=== PATIENT | female | born 1945 | race Caucasian/White ===

== ENCOUNTER 2017-02-25 09:03 | Day surgery (SDC) | payer MEDICARE, BC ==
--- NOTE | ~2017-02-25 | EGD ---
EGD REPORT [facility] [address] [id number] NAME: ROSA HACKETT : [birth year] STATUS : [facility] PAT#: [id number] AGE: 71 ADM/REG DATE : 02/25/17 MR#: [id number] REPORT SERV DATE: 02/25/17 DICTATED BY: SENIA CRUZ DATE: 02/25/17 REPORT STATUS : Draft TRANSCRIBED BY: [employer] DATE: 02/25/17 [facility] Patient Name: Rosa Hackett Date of : 1945 Attending MD: SENIA CRUZ MD Procedure Date No Time: 02/25/2017 Procedure: Colonoscopy Indications: High risk colon cancer surveillance: Personal history of colonic polyps Referring MD: SENIA JI Medicines: as per anesthesia Complications: No immediate complications. Procedure: Pre-Anesthesia Assessment: - ASA Grade Assessment: III - A patient with severe systemic disease. After I obtained informed consent, the scope was passed under direct vision. Throughout the procedure, the patient's blood pressure, pulse, and oxygen saturations were monitored continuously. The PCF [id number] was introduced through the anus and advanced to the cecum, identified by appendiceal orifice and ileocecal valve. The colonoscopy was performed without difficulty. The patient tolerated the procedure. The quality of the bowel preparation was adequate to identify polyps. Findings: The perianal and digital rectal examinations were normal. Internal hemorrhoids were found during endoscopy and were mild. Impression: - Internal hemorrhoids. Recommendation: - Repeat colonoscopy in 5 years for surveillance. Procedure Code(s): --- Professional --- 82206, Colonoscopy, flexible, proximal to splenic flexure; diagnostic, with or without collection of specimen(s) by brushing or washing, with or without colon decompression (separate procedure) Diagnosis Code(s): --- Professional --- K64.8, Other hemorrhoids Z86.010, Personal history of colonic polyps CPT copyright 2013 [employer]. All rights reserved. EGD REPORT [facility] [address] [place]. [address] NAME: ROSA HACKETT : [birth year] STATUS : [facility] PAT#: [id number] AGE: 71 ADM/REG DATE : 02/25/17 MR#: [id number] REPORT SERV DATE: 02/25/17 DICTATED BY: SENIA CRUZ. DATE: 02/25/17 REPORT STATUS : Draft TRANSCRIBED BY: [employer] DATE: 02/25/17 The codes documented in this report are preliminary and upon orthopaedic surgeon review may be revised to meet current compliance requirements. SENIA CRUZ MD 02/25/2017 11:25 AM This report has been signed electronically. Number of Addenda: 0 Note Initiated On: 02/25/2017 10:59 AM Scope Withdrawal Time 0 hours 7 minutes 59 seconds [address] [place] [address]
[~2017-02-25 09:03] MED LIST: ANOROELLIPTA INH; ATEN50 PO; CALCIUM; FISH OIL1200 MG PO; IRON PO; MULTIPLE VIT PO; PROAIR HFA INH; ZANAFLEX 4 MG TA4 MG PO
== END 2017-02-25 23:59 | disposition home health service (06) ==
LOC: DMU 09:03
PROVIDERS: Internal Medicine Gastroenterology
PROC: 0DJD8ZZ Inspection of Lower Intestinal Tract, Via Natural or Artificial Opening Endoscopic (ICD-10-PCS; principal; 2017-02-25 10:30)
DX: Z12.11 Encounter for screening for malignant neoplasm of colon (principal); K64.8 Other hemorrhoids; J44.9 Chronic obstructive pulmonary disease, unspecified; I10 Essential (primary) hypertension; M19.90 Unspecified osteoarthritis, unspecified site; Z86.010 Personal history of colon polyps; Z88.8 Allergy status to other drugs, medicaments and biological substances; Z79.899 Other long term (current) drug therapy; Z87.891 Personal history of nicotine dependence; Z90.710 Acquired absence of both cervix and uterus; Z98.890 Other specified postprocedural states